=== PATIENT | female | born 1980 | race Caucasian/White ===

== ENCOUNTER 2024-02-07 10:52 | Outpatient (CLI) | payer OTHER, SELFPAY ==
--- NOTE | 2024-02-07 11:30 | MM_ITS ---
Patient: KATIUSKA BARBA Facility:?[facility] Patient ID:?[id number] Site Patient ID:?[id number] Site :?[id number] Study:?XRay-Breast Bilateral 3D W/CAD-02/07/2024 11:19:59 AM Ordering Physician:Javier Final Report: BILATERAL SCREENING MAMMOGRAM WITH COMPUTER-AIDED DETECTION AND TOMOSYNTHESIS TECHNIQUE: CC and MLO views were obtained. These mammographic images have been obtained using full-field digital technique. These mammographic images were interpreted with the benefit of computer-aided detection. Breast Tomosynthesis was used in this interpretation. COMPARISON FILM: 08/11/21, 06/21/20. FINDINGS: The breasts are heterogeneously dense, which may obscure small masses. IMPRESSION: There is no radiographic evidence for malignancy. ASSESSMENT: BI-RADS Category 1: Negative RECOMMENDATION: Routine screening mammogram in 1 year. A lay language report of this examination will be provided to the patient. Steve Jimenez M.D. Diagnostic Radiologist [email or web address] DELTA/sp R& Transcribed: 1:43 p.m. SP/Dictated by: Steve Jimenez MD @ 02/07/2024 11:38:00 AM Signed by:?Steve Jimenez MD @02/07/2024 2:49:41 PM (Electronic Signature)
== END 2024-02-07 10:53 | disposition home or self-care (01) ==
LOC: MAMMO 10:54
PROVIDERS: Visit Provider Obstetrics & Gynecology
DX: Z12.31 Encounter for screening mammogram for malignant neoplasm of breast (principal); R92.2 Inconclusive mammogram
CPT/HCPCS: 77063; 77067